=== PATIENT | male | born 1985 ===

== ENCOUNTER 2021-02-21 14:59 | Emergency (ER) | payer SELFPAY ==
[2021-02-21] MEDS ORDERED: ceFAZolin 1GM/50ML 50 ML IV ONE (17:00)
[2021-02-21] MEDS ORDERED: TETANUS-DIPTH-ACEL PERTUSSIS 0.5ML SYR Tdap IM ONE (17:00)
[2021-02-21 20:02] VITALS: BP 138/98
== END 2021-02-21 20:15 | disposition home or self-care (01) ==
LOC: ER 15:06
DX: S62.91XB Unspecified fracture of right hand, initial encounter for open fracture (principal); V28.4XXA Motorcycle driver injured in noncollision transport accident in traffic accident, initial encounter; Y93.89 Activity, other specified; Y92.89 Other specified places as the place of occurrence of the external cause; Y99.8 Other external cause status
CPT/HCPCS: 73200; 90471; 90715; 96365; 96366; 99285; J0690